=== PATIENT | female | born 1965 | race Asian ===

== ENCOUNTER 2017-07-21 11:58 | Inpatient (IN) | payer OTHER ==
[~2017-07-21] VITALS: Ht 157.5 cm; Wt 68.0 kg
[2017-07-21] VITALS (8 sets, daily range): BP systolic 105–126; BP diastolic 50–85
[2017-07-21] MEDS ORDERED: METF500T6 PO (12:55)
[2017-07-21] MEDS ORDERED: CEPH500 PO (12:55)
[2017-07-21] MEDS ORDERED: SITA100 PO (12:55)
[2017-07-21] MEDS ORDERED: VANCOMYCIN HCL 1 GM/D5% WATER 200 ML IV ONE (13:15)
[2017-07-21] MEDS ORDERED: PIPERACILLIN/TAZO 3.375 GM/D5W 50 ML IV ONE (13:15)
[2017-07-21] MEDS ORDERED: SODIUM CHLORIDE 0.9% 1,000 ML IV ONE (13:15)
[2017-07-21] MEDS ORDERED: ONDANSETRON HCL 4 MG/2 ML VIAL IVP ONE (13:15)
[2017-07-21 14:12] LABS: MEAN CORPUSCULAR HEMOGLOBIN 18.2 pg (26.0-34.0); MEAN CORPUSCULAR HGB CONC 33.2 G/dL (31.0-37.0); MEAN CORPUSCULAR VOLUME 55 fL (80-100); PLATELET COUNT (AUTO) 617 K/uL (150-450); RED BLOOD CELL COUNT(AUTO) 3.46 MIL/uL (4.00-5.20); RED CELL DISTRIBUTION WIDTH 19.3 % (11.5-14.5)
[2017-07-21] MEDS ORDERED: GADOBUTROL 1 MMOL/ML 10 ML VIAL IVP ONE (14:13)
[2017-07-21 14:20] LABS: HEMOGLOBIN 6.3 g/dL (12.0-16.0)
[2017-07-21 14:21] LABS: CALCIUM, TOTAL 8.5 mg/dL (8.8-10.5); CREATININE 0.98 mg/dL (0.60-1.30); POTASSIUM 3.3 mmol/L (3.5-5.1)
[2017-07-21 14:27] LABS: ALBUMIN 1.4 g/dL (3.4-5.0); BILIRUBIN,TOTAL 0.7 mg/dL (0.1-1.0); TOTAL PROTEIN, SERUM 7.9 g/dL (6.4-8.2)
[2017-07-21 14:30] LABS: BAND NEUTROPHILS % (MANUAL) 16 % (0-5); LYMPHOCYTES % (MANUAL) 13 % (22-44); MONOCYTES % (MANUAL) 6 % (2-9); SEGMENTED NEUTROPHILS % 65 % (40-70)
[2017-07-21] MEDS ORDERED: ASCO500 PO (14:50)
[2017-07-21] MEDS ORDERED: INSU300I SQ (14:50)
[2017-07-21] MEDS ORDERED: METO50 PO (14:50)
[2017-07-21] MEDS ORDERED: FERR-89 PO (14:50)
[2017-07-21] MEDS ORDERED: ASPI81 PO (14:50)
[2017-07-21] MEDS ORDERED: LISI-660 PO (14:50)
[2017-07-21] MEDS ORDERED: ERGO2000 PO (14:50)
[2017-07-21] MEDS ORDERED: ONDANSETRON HCL 4 MG/2 ML VIAL IVP PRN (15:30)
[2017-07-21] MEDS ORDERED: ACETAMINOPHEN 325 MG TABLET PO PRN ×2 (15:30→21:15)
[2017-07-21] MEDS ORDERED: DEXTROSE 50%-WATER 25 GM/50 ML SYRINGE IVP PRN (15:30)
[2017-07-21] MEDS ORDERED: SODIUM CL IRRIG SOLN BOTTLE 250 ML IRRIG ONE (17:07)
[2017-07-21 17:53] LABS: GLUCOMETER DEV NAME(LOC) 6N 2D; GLUCOSE,POINT OF CARE 213 MG/DL (70-110)
[2017-07-21] MEDS: INSULIN LISPRO 100 UNITS/ML SQ PRN ×2 (17:59→20:47)
[2017-07-21 20:43] LABS: GLUCOMETER DEV NAME(LOC) 6N 1E; GLUCOSE,POINT OF CARE 347 MG/DL (70-110)
[2017-07-21] MEDS ORDERED: INSULIN LISPRO 100 UNITS/ML SQ PRN (21:15)
[2017-07-21] MEDS ORDERED: 0.9% SODIUM CHLORIDE 10 ML SYRINGE IVP PRN (21:15)
[2017-07-21] MEDS ORDERED: ZOLPIDEM TARTRATE 5 MG TABLET PO PRN (21:15)
[2017-07-21] MEDS ORDERED: GLUCAGON,HUMAN RECOMBINANT 1 MG VIAL IM PRN (21:15)
[2017-07-21] MEDS ORDERED: DEXTROSE 50%-WATER 25 GM/50 ML SYG IVP PRN (21:15)
[2017-07-21 22:00] LABS: C-REACTIVE PROTEIN QUANT 17.9 mg/dL (0.00-0.30)
[2017-07-21] MEDS: PIPERACILLIN/TAZO 3.375 GM/D5W 50 ML IV SCH (22:14)
[2017-07-21] MEDS ORDERED: VANCOMYCIN HCL 500 MG in DEXTROSE 5%-WATER 100 ML IV ONE (22:30)
[2017-07-21 22:41] LABS: ERYTHROCYTE SEDIMENTATION RATE 120 MM/HR (0-20)
[2017-07-21 23:11] LABS: HEMOGLOBIN A1C 10.6 % (4.5-6.2)
[2017-07-21] MEDS: HEPARIN SODIUM,PORCINE 5,000 UNITS/ML VIAL SQ SCH (23:47)
[2017-07-22] VITALS (9 sets, daily range): BP systolic 119–142; BP diastolic 57–77
[2017-07-22] MEDS: PIPERACILLIN/TAZO 3.375 GM/D5W 50 ML IV SCH ×4 (03:23→22:53)
[2017-07-22] MEDS: INSULIN LISPRO 100 UNITS/ML SQ PRN ×2 (06:10→21:06)
[2017-07-22] MEDS ORDERED: INSULIN LISPRO 100 UNITS/ML SQ ONE (06:45)
[2017-07-22 06:55] LABS: CALCIUM, TOTAL 8.1 mg/dL (8.8-10.5); CHOL/HDL RATIO 5.1 (3.9-5.7); CREATININE 1.25 mg/dL (0.60-1.30); MAGNESIUM 1.6 mg/dL (1.80-2.40); POTASSIUM 3.8 mmol/L (3.5-5.1)
[2017-07-22 06:57] LABS: GLUCOMETER DEV NAME(LOC) 6N 2D; GLUCOSE,POINT OF CARE 421 MG/DL (70-110)
[2017-07-22 07:33] LABS: BASOPHILS % (AUTO) 0.3 % (0.0-2.0); EOSINOPHILS % (AUTO) 0.4 % (1.0-6.0); HEMATOCRIT 21.4 % (36-46); HEMOGLOBIN 7.2 g/dL (12.0-16.0); LYMPHOCYTES # (AUTO) 3.4 K/uL (1.0-4.8); LYMPHOCYTES % (AUTO) 17.3 % (22.0-44.0); MEAN CORPUSCULAR HEMOGLOBIN 20.2 pg (26.0-34.0); MEAN CORPUSCULAR HGB CONC 33.7 G/dL (31.0-37.0); MEAN CORPUSCULAR VOLUME 60 fL (80-100); MONOCYTES # (AUTO) 1.1 K/uL (0.1-1.0); MONOCYTES % (AUTO) 5.5 % (2.0-9.0); NEUTROPHILS # (AUTO) 15.1 K/uL (1.8-7.7); NEUTROPHILS % (AUTO) 76.5 % (40.0-70.0); PLATELET COUNT (AUTO) 565 K/uL (150-450); RED BLOOD CELL COUNT(AUTO) 3.57 MIL/uL (4.00-5.20); RED CELL DISTRIBUTION WIDTH 23.2 % (11.5-14.5)
[2017-07-22] MEDS: MetFORMIN HCL 500 MG TABLET PO SCH ×2 (08:07→19:52)
[2017-07-22] MEDS: METOPROLOL TARTRATE 50 MG TABLET PO SCH ×2 (08:07→20:17)
[2017-07-22] MEDS: LISINOPRIL 5 MG TABLET PO SCH (08:07)
[2017-07-22] MEDS: ASCORBIC ACID 500 MG TABLET PO SCH ×2 (08:07→20:17)
[2017-07-22] MEDS: DOCUSATE SODIUM 100 MG CAPSULE PO SCH ×2 (08:07→20:17)
[2017-07-22] MEDS: VANCOMYCIN HCL 1 GM/D5% WATER 200 ML IV SCH ×2 (08:07→20:17)
[2017-07-22] MEDS: ASPIRIN 81 MG CHEWABLE TABLET PO SCH (08:08)
[2017-07-22] MEDS: SitaGLIPtin PHOSPHATE 50 MG TABLET PO SCH (08:08)
[2017-07-22] MEDS: FERROUS SULFATE 325 MG EC TABLET PO SCH ×2 (08:08→19:52)
[2017-07-22] MEDS: HEPARIN SODIUM,PORCINE 5,000 UNITS/ML VIAL SQ SCH ×3 (08:08→23:46)
[2017-07-22] MEDS: PANTOPRAZOLE SODIUM 40 MG DR TABLET PO SCH (08:08)
[2017-07-22] MEDS: OxyCODONE HCL/ACETAMINOPHEN 5-325 MG TABLET PO PRN (08:15)
[2017-07-22] MEDS: ONDANSETRON HCL 4 MG/2 ML VIAL IVP PRN (11:00)
[2017-07-22] MEDS ORDERED: ONDANSETRON HCL 4 MG/2 ML VIAL IVP ONE (13:15)
[2017-07-22] MEDS: ACETIC ACID 0.25% 1000 ML IRRIGATION SOLUTION IRRIG SCH (13:34)
[2017-07-22 15:57] LABS: GLUCOMETER DEV NAME(LOC) 6N 2D; GLUCOSE,POINT OF CARE 322 MG/DL (70-110)
[2017-07-22 19:43] LABS: GLUCOMETER DEV NAME(LOC) 6N 2D; GLUCOSE,POINT OF CARE 366 MG/DL (70-110)
[2017-07-22 21:04] LABS: GLUCOMETER DEV NAME(LOC) 6N 1E; GLUCOSE,POINT OF CARE 306 MG/DL (70-110)
[2017-07-23] MEDS ORDERED: DEXTROSE 5%-0.45% SODIUM CHL 1,000 ML IV ONE
[2017-07-23 00:22] VITALS: BP 101/53
[2017-07-23] MEDS: PIPERACILLIN/TAZO 3.375 GM/D5W 50 ML IV SCH ×4 (03:51→23:29)
[2017-07-23 04:00] VITALS: BP 129/73
[2017-07-23] MEDS: INSULIN LISPRO 100 UNITS/ML SQ PRN ×3 (05:19→21:09)
[2017-07-23 06:08] LABS: GLUCOMETER DEV NAME(LOC) 6N 2D; GLUCOSE,POINT OF CARE 280 MG/DL (70-110)
[2017-07-23] MEDS: HEPARIN SODIUM,PORCINE 5,000 UNITS/ML VIAL SQ SCH ×3 (08:00→23:29)
[2017-07-23] MEDS: ASCORBIC ACID 500 MG TABLET PO SCH ×2 (08:06→20:56)
[2017-07-23] MEDS: LISINOPRIL 5 MG TABLET PO SCH (08:06)
[2017-07-23] MEDS: METOPROLOL TARTRATE 50 MG TABLET PO SCH ×2 (08:06→20:56)
[2017-07-23] MEDS: PANTOPRAZOLE SODIUM 40 MG DR TABLET PO SCH (08:06)
[2017-07-23] MEDS: MetFORMIN HCL 500 MG TABLET PO SCH ×2 (08:06→18:00)
[2017-07-23] MEDS: VANCOMYCIN HCL 1 GM/D5% WATER 200 ML IV SCH ×2 (08:06→20:53)
[2017-07-23] MEDS: DOCUSATE SODIUM 100 MG CAPSULE PO SCH ×2 (08:06→20:56)
[2017-07-23] MEDS: SitaGLIPtin PHOSPHATE 50 MG TABLET PO SCH (08:06)
[2017-07-23] MEDS: FERROUS SULFATE 325 MG EC TABLET PO SCH ×2 (08:06→18:00)
[2017-07-23] MEDS: ASPIRIN 81 MG CHEWABLE TABLET PO SCH (08:09)
[2017-07-23 08:18] LABS: CALCIUM, TOTAL 7.9 mg/dL (8.8-10.5); CREATININE 1.2 mg/dL (0.60-1.30); POTASSIUM 3.5 mmol/L (3.5-5.1); VANCOMYCIN,RANDOM 22.7 mcg/mL (25.0-50.0)
[2017-07-23 08:24] VITALS: BP 130/79
[2017-07-23] MEDS ORDERED: SODIUM CHLORIDE 0.9% 250 ML IV ONE (10:55)
[2017-07-23 11:53] VITALS: BP 124/70
[2017-07-23] MEDS ORDERED: LIDOCAINE HCL/PF 2% 5 ML VIAL INJ ONE (12:00)
[2017-07-23] MEDS ORDERED: METOCLOPRAMIDE HCL 5 MG/ML 2 ML VIAL IVP ONE (12:00)
[2017-07-23] MEDS ORDERED: FentaNYL CITRATE-PF 100 MCG/2 ML VIAL IVP ONE (12:00)
[2017-07-23] MEDS ORDERED: ONDANSETRON HCL 4 MG/2 ML VIAL IVP ONE (12:00)
[2017-07-23] MEDS ORDERED: DEXAMETHASONE SOD PHOS 4 MG/ML VIAL IVP ONE (12:00)
[2017-07-23] MEDS ORDERED: ROCURONIUM BROMIDE 10 MG/ML 5 ML VIAL IVP ONE (12:00)
[2017-07-23] MEDS ORDERED: NEOSTIGMINE METHYLSULFATE 1 MG/ML 10 ML VIAL IVP ONE (12:00)
[2017-07-23] MEDS ORDERED: MIDAZOLAM HCL 2 MG/2 ML VIAL IVP ONE (12:00)
[2017-07-23] MEDS ORDERED: GLYCOPYRROLATE 0.2 MG/ML VIAL IM ONE (12:00)
[2017-07-23] MEDS ORDERED: PROPOFOL 1% 20 ML VIAL IVP ONE (12:00)
[2017-07-23] MEDS: ACETIC ACID 0.25% 1000 ML IRRIGATION SOLUTION IRRIG SCH (12:28)
[2017-07-23] MEDS ORDERED: RINGERS SOLUTION,LACTATED 1,000 ML IV ONE ×2 (13:00→13:26)
[2017-07-23] MEDS ORDERED: HYDROmorphone 2 MG/ML SYRINGE IVP PRN (14:45)
[2017-07-23] MEDS ORDERED: MEPERIDINE HCL/PF 25 MG/0.5 ML AMP IVP PRN (14:45)
[2017-07-23] MEDS ORDERED: FentaNYL CITRATE-PF 100 MCG/2 ML VIAL IVP PRN (14:45)
[2017-07-23 18:53] LABS: GLUCOMETER DEV NAME(LOC) 6N 2D; GLUCOSE,POINT OF CARE 302 MG/DL (70-110)
[2017-07-23] MEDS: OXYGEN THERAPY IH SCH (20:00)
[2017-07-23 20:02] VITALS: BP 125/64
[2017-07-23 21:22] LABS: GLUCOMETER DEV NAME(LOC) 6N 2D; GLUCOSE,POINT OF CARE 226 MG/DL (70-110)
[2017-07-23] MEDS: OxyCODONE HCL/ACETAMINOPHEN 5-325 MG TABLET PO PRN (23:39)
[2017-07-23 23:40] VITALS: BP 115/61
[2017-07-24] MEDS: PIPERACILLIN/TAZO 3.375 GM/D5W 50 ML IV SCH (03:58)
[2017-07-24 04:00] VITALS: BP 111/64
[2017-07-24] MEDS: INSULIN LISPRO 100 UNITS/ML SQ PRN ×4 (06:02→21:30)
[2017-07-24 06:28] LABS: GLUCOMETER DEV NAME(LOC) 6N 2D; GLUCOSE,POINT OF CARE 245 MG/DL (70-110)
[2017-07-24 06:47] LABS: CALCIUM, TOTAL 7.9 mg/dL (8.8-10.5); CREATININE 1.63 mg/dL (0.60-1.30); POTASSIUM 3.6 mmol/L (3.5-5.1)
[2017-07-24 08:00] VITALS: BP 105/60
[2017-07-24] MEDS: OXYGEN THERAPY IH SCH ×2 (08:00→19:57)
[2017-07-24] MEDS: SitaGLIPtin PHOSPHATE 50 MG TABLET PO SCH (08:34)
[2017-07-24] MEDS: ASCORBIC ACID 500 MG TABLET PO SCH ×2 (08:35→19:56)
[2017-07-24] MEDS: ASPIRIN 81 MG CHEWABLE TABLET PO SCH (08:35)
[2017-07-24] MEDS: DOCUSATE SODIUM 100 MG CAPSULE PO SCH ×2 (08:35→19:56)
[2017-07-24] MEDS: MetFORMIN HCL 500 MG TABLET PO SCH ×2 (08:35→17:48)
[2017-07-24] MEDS: FERROUS SULFATE 325 MG EC TABLET PO SCH ×2 (08:35→17:48)
[2017-07-24] MEDS: METOPROLOL TARTRATE 50 MG TABLET PO SCH ×2 (08:35→19:57)
[2017-07-24] MEDS: HEPARIN SODIUM,PORCINE 5,000 UNITS/ML VIAL SQ SCH ×3 (08:36→23:36)
[2017-07-24] MEDS: LISINOPRIL 5 MG TABLET PO SCH (08:36)
[2017-07-24] MEDS: PANTOPRAZOLE SODIUM 40 MG DR TABLET PO SCH (08:36)
[2017-07-24] MEDS: ACETIC ACID 0.25% 1000 ML IRRIGATION SOLUTION IRRIG SCH (08:37)
[2017-07-24] MEDS: ONDANSETRON HCL 4 MG/2 ML VIAL IVP PRN (10:17)
[2017-07-24] MEDS: PIPERACILLIN SODIUM/TAZOBACTAM 2.25 GM in DEXTROSE 5%-WATER 50 ML IV SCH ×3 (10:21→22:47)
[2017-07-24 11:49] VITALS: BP 137/69
[2017-07-24 12:39] LABS: GLUCOMETER DEV NAME(LOC) 6N 1E; GLUCOSE,POINT OF CARE 241 MG/DL (70-110)
[2017-07-24] MEDS ORDERED: METOCLOPRAMIDE HCL 5 MG/ML 2 ML VIAL IVP PRN (13:00)
[2017-07-24 15:51] VITALS: BP 125/68
[2017-07-24 19:13] VITALS: BP 134/64
[2017-07-24 19:38] LABS: GLUCOMETER DEV NAME(LOC) 6N 1E; GLUCOSE,POINT OF CARE 242 MG/DL (70-110)
[2017-07-24] MEDS ORDERED: VANCOMYCIN HCL 1 GM/D5% WATER 200 ML IV SCH (20:00)
[2017-07-24 23:36] VITALS: BP 104/62
[2017-07-25 01:33] LABS: GLUCOMETER DEV NAME(LOC) 6N 1E; GLUCOSE,POINT OF CARE 205 MG/DL (70-110)
[2017-07-25] MEDS: PIPERACILLIN SODIUM/TAZOBACTAM 2.25 GM in DEXTROSE 5%-WATER 50 ML IV SCH ×3 (04:23→17:01)
[2017-07-25 04:31] VITALS: BP 124/67
[2017-07-25 05:28] LABS: GLUCOMETER DEV NAME(LOC) 6N 1E; GLUCOSE,POINT OF CARE 201 MG/DL (70-110)
[2017-07-25] MEDS: INSULIN LISPRO 100 UNITS/ML SQ PRN ×4 (06:28→20:18)
[2017-07-25 07:19] LABS: CALCIUM, TOTAL 7.6 mg/dL (8.8-10.5); CREATININE 2.95 mg/dL (0.60-1.30); POTASSIUM 3.7 mmol/L (3.5-5.1); VANCOMYCIN,RANDOM 41.7 mcg/mL (25.0-50.0)
[2017-07-25 07:58] VITALS: BP 126/63
[2017-07-25] MEDS: OXYGEN THERAPY IH SCH ×2 (08:00→20:00)
[2017-07-25] MEDS: METOPROLOL TARTRATE 50 MG TABLET PO SCH ×2 (08:47→20:11)
[2017-07-25] MEDS: FERROUS SULFATE 325 MG EC TABLET PO SCH ×2 (08:47→17:01)
[2017-07-25] MEDS: ASCORBIC ACID 500 MG TABLET PO SCH ×2 (08:47→20:11)
[2017-07-25] MEDS: MetFORMIN HCL 500 MG TABLET PO SCH (08:47)
[2017-07-25] MEDS: LISINOPRIL 5 MG TABLET PO SCH (08:47)
[2017-07-25] MEDS: SitaGLIPtin PHOSPHATE 50 MG TABLET PO SCH (08:47)
[2017-07-25] MEDS: HEPARIN SODIUM,PORCINE 5,000 UNITS/ML VIAL SQ SCH ×3 (08:47→23:46)
[2017-07-25] MEDS: PANTOPRAZOLE SODIUM 40 MG DR TABLET PO SCH (08:47)
[2017-07-25] MEDS: DOCUSATE SODIUM 100 MG CAPSULE PO SCH ×2 (08:47→20:11)
[2017-07-25] MEDS: ASPIRIN 81 MG CHEWABLE TABLET PO SCH (08:48)
[2017-07-25] MEDS: ACETIC ACID 0.25% 1000 ML IRRIGATION SOLUTION IRRIG SCH (09:00)
[2017-07-25] MEDS ORDERED: VANCOMYCIN HCL 1 GM/D5% WATER 200 ML IV PRN (09:00)
[2017-07-25 11:30] VITALS: BP 126/69
[2017-07-25] MEDS ORDERED: BISACODYL 10 MG RECTAL RECTAL SUPPOSITORY PR PRN (12:00)
[2017-07-25] MEDS ORDERED: DEXTROSE 50%-WATER 25 GM/50 ML SYRINGE IVP PRN (12:00)
[2017-07-25 15:54] VITALS: BP 114/68
[2017-07-25 16:53] LABS: GLUCOMETER DEV NAME(LOC) 6N 1E; GLUCOSE,POINT OF CARE 177 MG/DL (70-110)
[2017-07-25 17:48] LABS: GLUCOMETER DEV NAME(LOC) 6N 2D; GLUCOSE,POINT OF CARE 165 MG/DL (70-110)
[2017-07-25 20:03] VITALS: BP 111/64
[2017-07-25 22:48] LABS: GLUCOMETER DEV NAME(LOC) 6N 1E; GLUCOSE,POINT OF CARE 152 MG/DL (70-110)
[2017-07-25 23:46] VITALS: BP 106/62
[2017-07-26 04:55] VITALS: BP 115/65
[2017-07-26] MEDS: INSULIN LISPRO 100 UNITS/ML SQ PRN ×4 (05:35→20:57)
[2017-07-26 06:24] LABS: GLUCOMETER DEV NAME(LOC) 6N 1E; GLUCOSE,POINT OF CARE 168 MG/DL (70-110)
[2017-07-26 07:01] LABS: BASOPHILS % (AUTO) 0.5 % (0.0-2.0); EOSINOPHILS % (AUTO) 0.8 % (1.0-6.0); HEMATOCRIT 22.1 % (36-46); HEMOGLOBIN 7.3 g/dL (12.0-16.0); LYMPHOCYTES # (AUTO) 0.7 K/uL (1.0-4.8); LYMPHOCYTES % (AUTO) 3.9 % (22.0-44.0); MEAN CORPUSCULAR HEMOGLOBIN 19.8 pg (26.0-34.0); MEAN CORPUSCULAR HGB CONC 33.3 G/dL (31.0-37.0); MEAN CORPUSCULAR VOLUME 60 fL (80-100); MONOCYTES # (AUTO) 1.1 K/uL (0.1-1.0); MONOCYTES % (AUTO) 6.1 % (2.0-9.0); NEUTROPHILS # (AUTO) 15.7 K/uL (1.8-7.7); PLATELET COUNT (AUTO) 647 K/uL (150-450); RED CELL DISTRIBUTION WIDTH 23.4 % (11.5-14.5)
[2017-07-26 07:20] LABS: NEUTROPHILS % (AUTO) 88.7 % (40.0-70.0)
[2017-07-26 07:27] LABS: CALCIUM, TOTAL 7.8 mg/dL (8.8-10.5); CREATININE 3.61 mg/dL (0.60-1.30)
[2017-07-26] MEDS: ASPIRIN 81 MG CHEWABLE TABLET PO SCH (07:51)
[2017-07-26] MEDS: SitaGLIPtin PHOSPHATE 25 MG TABLET PO SCH (07:51)
[2017-07-26] MEDS: ACETIC ACID 0.25% 1000 ML IRRIGATION SOLUTION IRRIG SCH (07:52)
[2017-07-26] MEDS: ASCORBIC ACID 500 MG TABLET PO SCH ×2 (07:52→20:39)
[2017-07-26] MEDS: FERROUS SULFATE 325 MG EC TABLET PO SCH ×2 (07:52→17:45)
[2017-07-26] MEDS: OXYGEN THERAPY IH SCH ×2 (07:52→20:00)
[2017-07-26] MEDS: MULTIVITAMINS WITH MINERALS, THERAPEUTIC TABLET PO SCH (07:52)
[2017-07-26] MEDS: PANTOPRAZOLE SODIUM 40 MG DR TABLET PO SCH (07:52)
[2017-07-26] MEDS: LISINOPRIL 5 MG TABLET PO SCH (07:52)
[2017-07-26] MEDS: HEPARIN SODIUM,PORCINE 5,000 UNITS/ML VIAL SQ SCH ×3 (07:52→23:33)
[2017-07-26] MEDS: METOPROLOL TARTRATE 50 MG TABLET PO SCH ×2 (07:52→20:39)
[2017-07-26] MEDS: DOCUSATE SODIUM 100 MG CAPSULE PO SCH ×2 (07:53→20:38)
[2017-07-26 08:10] VITALS: BP 140/72
[2017-07-26 08:32] LABS: VANCOMYCIN,RANDOM 32.4 mcg/mL (25.0-50.0)
[2017-07-26] MEDS ORDERED: HYDROmorphone 2 MG/ML SYRINGE IVP ONE (08:45)
[2017-07-26 09:08] LABS: PLATELET MORPHOLOGY COMMENT GIANT PLTS PRESENT
[2017-07-26] MEDS: ONDANSETRON HCL 4 MG/2 ML VIAL IVP PRN (09:56)
[2017-07-26 11:44] VITALS: BP 124/63
[2017-07-26 12:37] LABS: GLUCOMETER DEV NAME(LOC) 6N 2D; GLUCOSE,POINT OF CARE 160 MG/DL (70-110)
[2017-07-26 17:26] VITALS: BP 132/71
[2017-07-26 19:23] LABS: GLUCOMETER DEV NAME(LOC) 6N 2D; GLUCOSE,POINT OF CARE 164 MG/DL (70-110)
[2017-07-26 19:30] VITALS: BP 124/74
[2017-07-26 21:17] LABS: GLUCOMETER DEV NAME(LOC) 6N 1E; GLUCOSE,POINT OF CARE 125 MG/DL (70-110)
[2017-07-26 23:00] VITALS: BP 121/63
[2017-07-27 04:45] VITALS: BP 126/74
[2017-07-27 05:43] LABS: GLUCOMETER DEV NAME(LOC) 6N 2D; GLUCOSE,POINT OF CARE 164 MG/DL (70-110)
[2017-07-27 06:50] LABS: EOSINOPHILS % (AUTO) 0.6 % (1.0-6.0); HEMATOCRIT 23.3 % (36-46); HEMOGLOBIN 7.7 g/dL (12.0-16.0); LYMPHOCYTES # (AUTO) 0.6 K/uL (1.0-4.8); LYMPHOCYTES % (AUTO) 3.5 % (22.0-44.0); MEAN CORPUSCULAR HEMOGLOBIN 19.8 pg (26.0-34.0); MEAN CORPUSCULAR HGB CONC 33.2 G/dL (31.0-37.0); MEAN CORPUSCULAR VOLUME 60 fL (80-100); MONOCYTES # (AUTO) 1.3 K/uL (0.1-1.0); NEUTROPHILS # (AUTO) 13.6 K/uL (1.8-7.7); RED CELL DISTRIBUTION WIDTH 25.1 % (11.5-14.5)
[2017-07-27 07:10] LABS: CALCIUM, TOTAL 8.1 mg/dL (8.8-10.5); CREATININE 3.78 mg/dL (0.60-1.30); MAGNESIUM 1.7 mg/dL (1.80-2.40); VANCOMYCIN,RANDOM 26.3 mcg/mL (25.0-50.0)
[2017-07-27 07:30] LABS: NEUTROPHILS % (AUTO) 86.9 % (40.0-70.0)
[2017-07-27 07:32] LABS: PLATELET COUNT (AUTO) 779 K/uL (150-450)
[2017-07-27] MEDS: OXYGEN THERAPY IH SCH (08:00)
[2017-07-27 08:06] LABS: PLATELET MORPHOLOGY COMMENT GIANT PLTS PRESENT
[2017-07-27 08:08] LABS: % IRON SATURATION 39.3 % (22-44)
[2017-07-27 08:18] VITALS: BP 124/72
[2017-07-27] MEDS ORDERED: SODIUM CL IRRIG SOLN BOTTLE 0 ML IRRIG ONE (08:27)
[2017-07-27] MEDS: ACETIC ACID 0.25% 1000 ML IRRIGATION SOLUTION IRRIG SCH (09:00)
[2017-07-27] MEDS ORDERED: SOD FERRIC GLUC COMPLX/SUCROSE 125 MG in SODIUM CHLORIDE 0.9% 100 ML IV SCH (09:45)
[2017-07-27] MEDS: SODIUM CHLORIDE 0.9% 1,000 ML IV SCH (09:59)
[2017-07-27] MEDS: HEPARIN SODIUM,PORCINE 5,000 UNITS/ML VIAL SQ SCH ×3 (09:59→23:24)
[2017-07-27] MEDS: SitaGLIPtin PHOSPHATE 25 MG TABLET PO SCH (09:59)
[2017-07-27] MEDS: MULTIVITAMINS WITH MINERALS, THERAPEUTIC TABLET PO SCH (10:00)
[2017-07-27] MEDS: PANTOPRAZOLE SODIUM 40 MG DR TABLET PO SCH (10:00)
[2017-07-27] MEDS: DOCUSATE SODIUM 100 MG CAPSULE PO SCH ×2 (10:00→19:47)
[2017-07-27] MEDS: METOPROLOL TARTRATE 50 MG TABLET PO SCH ×2 (10:00→19:47)
[2017-07-27] MEDS: ASCORBIC ACID 500 MG TABLET PO SCH ×2 (10:00→19:45)
[2017-07-27] MEDS: ASPIRIN 81 MG CHEWABLE TABLET PO SCH (11:29)
[2017-07-27] MEDS: INSULIN LISPRO 100 UNITS/ML SQ PRN ×3 (11:31→19:58)
[2017-07-27 11:46] VITALS: BP 145/79
[2017-07-27 13:48] LABS: BAND NEUTROPHILS % (MANUAL) 0 % (0-5)
[2017-07-27 13:56] LABS: HEMATOCRIT 23.3 % (36-46); HEMOGLOBIN 7.6 g/dL (12.0-16.0); MEAN CORPUSCULAR HEMOGLOBIN 19.2 pg (26.0-34.0); MEAN CORPUSCULAR HGB CONC 32.5 G/dL (31.0-37.0); MEAN CORPUSCULAR VOLUME 59 fL (80-100); RED BLOOD CELL COUNT(AUTO) 3.93 MIL/uL (4.00-5.20)
[2017-07-27 14:21] LABS: PLATELET COUNT (AUTO) 770 K/uL (150-450)
[2017-07-27 14:52] LABS: LYMPHOCYTES % (MANUAL) 6 % (22-44); MONOCYTES % (MANUAL) 3 % (2-9); PLATELET MORPHOLOGY COMMENT GIANT PLTS PRESENT; SEGMENTED NEUTROPHILS % 91 % (40-70)
[2017-07-27 15:34] VITALS: BP 95/56
[2017-07-27 17:11] LABS: CALCIUM, TOTAL 8.3 mg/dL (8.8-10.5); CREATININE 3.76 mg/dL (0.60-1.30); POTASSIUM 3.9 mmol/L (3.5-5.1)
[2017-07-27 18:01] LABS: SODIUM,URINE RANDOM 23 mmol/l (20-110)
[2017-07-27 18:12] LABS: CREATININE,URINE RANDOM 31.3 mg/dL (30.0-125.0); UREA NITROGEN,URINE RANDOM 119 mg/dL (350-1000)
[2017-07-27 18:13] LABS: APPEARANCE,URINE CLEAR (CLEAR); BILIRUBIN,URINE NEGATIVE (NEGATIVE); GLUCOSE, URINE (UA) NEGATIVE (NEGATIVE); KETONES,URINE NEGATIVE (NEGATIVE); LEUKOCYTE ESTERASE ,URINE NEGATIVE (NEGATIVE); NITRATE,URINE NEGATIVE (NEGATIVE); OCCULT BLOOD,URINE TRACE (NEGATIVE); PH,URINE 5.5 (5.0-8.0); PROTEIN,URINE NEGATIVE (NEGATIVE); UROBILINOGEN,URINE 0.2 mg/dL (<=1.0)
[2017-07-27 18:19] LABS: OSMOLALITY,URINE 112 mOS/kg (50-1200)
[2017-07-27 18:32] LABS: YEAST,URINE Rare /HPF (None Seen)
[2017-07-27 18:33] LABS: BACTERIA,URINE Rare /HPF (None Seen); RBC,URINE 0-2 /HPF (0-2); WBC,URINE 0-2 /HPF (0-5)
[2017-07-27 18:34] LABS: SQUAMOUS EPITHELIAL CELL,UR Rare /LPF (None Seen)
[2017-07-27 19:53] VITALS: BP 133/72
[2017-07-27 20:01] LABS: GLUCOMETER DEV NAME(LOC) 6N 2D; GLUCOSE,POINT OF CARE 233 MG/DL (70-110)
[2017-07-27 20:31] LABS: GLUCOMETER DEV NAME(LOC) 6N 1E; GLUCOSE,POINT OF CARE 229 MG/DL (70-110)
[2017-07-27 20:31] LABS: GLUCOMETER DEV NAME(LOC) 6N 1E; GLUCOSE,POINT OF CARE 213 MG/DL (70-110)
[2017-07-27 23:10] VITALS: BP 114/59
[2017-07-28] VITALS (15 sets, daily range): BP systolic 100–147; BP diastolic 58–85
[2017-07-28] MEDS: INSULIN LISPRO 100 UNITS/ML SQ PRN ×3 (06:32→18:03)
[2017-07-28 06:48] LABS: GLUCOMETER DEV NAME(LOC) 6N 1E; GLUCOSE,POINT OF CARE 236 MG/DL (70-110)
[2017-07-28 06:57] LABS: ANION GAP 8 mmol/L (8-16); CALCIUM, TOTAL 8.1 mg/dL (8.8-10.5); CARBON DIOXIDE 24 mmol/L (22-29); CHLORIDE 97 mmol/L (98-107); CREATINE KINASE, TOTAL 43 U/L (26-192); CREATININE 3.67 mg/dL (0.60-1.30); GLOMERULAR FILTR. RATE CALC 13 mL/min (>60); GLUCOSE,RANDOM 230 mg/dL (70-110); POTASSIUM 3.9 mmol/L (3.5-5.1); SODIUM SERUM 129 mmol/L (136-145); THYROID STIMULATING HORMONE 1.99 uIU/mL (0.36-3.74); UREA NITROGEN, BLOOD 23 mg/dL (7-18); VANCOMYCIN,RANDOM 22.4 mcg/mL (25.0-50.0)
[2017-07-28 07:48] LABS: BASOPHILS % (AUTO) 0.2 % (0.0-2.0); EOSINOPHILS % (AUTO) 0.5 % (1.0-6.0); LYMPHOCYTES # (AUTO) 0.9 K/uL (1.0-4.8); LYMPHOCYTES % (AUTO) 7.7 % (22.0-44.0); MEAN CORPUSCULAR HGB CONC 33.6 G/dL (31.0-37.0); MEAN CORPUSCULAR VOLUME 60 fL (80-100); MONOCYTES # (AUTO) 1.8 K/uL (0.1-1.0); MONOCYTES % (AUTO) 16.1 % (2.0-9.0); NEUTROPHILS # (AUTO) 8.6 K/uL (1.8-7.7); NEUTROPHILS % (AUTO) 75.5 % (40.0-70.0); PLATELET COUNT (AUTO) 651 K/uL (150-450); RED BLOOD CELL COUNT(AUTO) 3.23 MIL/uL (4.00-5.20); RED CELL DISTRIBUTION WIDTH 26.1 % (11.5-14.5)
[2017-07-28 07:55] LABS: OSMOLALITY 291 mOS/kg (270-310)
[2017-07-28 07:58] LABS: HEMOGLOBIN 6.5 g/dL (12.0-16.0)
[2017-07-28 07:59] LABS: HEMATOCRIT 19.2 % (36-46)
[2017-07-28] MEDS: OXYGEN THERAPY IH SCH (08:00)
[2017-07-28 08:47] LABS: PLATELET MORPHOLOGY COMMENT GIANT PLTS PRESENT
[2017-07-28] MEDS: ACETIC ACID 0.25% 1000 ML IRRIGATION SOLUTION IRRIG SCH (09:00)
[2017-07-28] MEDS ORDERED: MAGNESIUM SULFATE 4 GM/WATER 100 ML IV ONE (09:30)
[2017-07-28] MEDS: DOCUSATE SODIUM 100 MG CAPSULE PO SCH ×2 (10:27→20:41)
[2017-07-28] MEDS: ASCORBIC ACID 500 MG TABLET PO SCH ×2 (10:27→20:40)
[2017-07-28] MEDS: PANTOPRAZOLE SODIUM 40 MG DR TABLET PO SCH ×2 (10:27→20:40)
[2017-07-28] MEDS: SitaGLIPtin PHOSPHATE 25 MG TABLET PO SCH (10:27)
[2017-07-28] MEDS: MULTIVITAMINS WITH MINERALS, THERAPEUTIC TABLET PO SCH (10:38)
[2017-07-28] MEDS: HEPARIN SODIUM,PORCINE 5,000 UNITS/ML VIAL SQ SCH ×3 (10:38→19:46)
[2017-07-28] MEDS: ASPIRIN 81 MG CHEWABLE TABLET PO SCH (10:38)
[2017-07-28] MEDS: METOPROLOL TARTRATE 50 MG TABLET PO SCH ×2 (10:39→21:00)
[2017-07-28 11:12] LABS: PATHOLOGY REVIEW, DIFF SEE NOTE.
[2017-07-28 15:08] LABS: GLUCOMETER DEV NAME(LOC) 6N 1E; GLUCOSE,POINT OF CARE 216 MG/DL (70-110)
[2017-07-28] MEDS ORDERED: SODIUM CHLORIDE 0.9% 500 ML IV ONE (15:39)
[2017-07-28] MEDS: SODIUM CHLORIDE 0.9% 1,000 ML IV SCH (20:41)
[2017-07-28 21:23] LABS: GLUCOMETER DEV NAME(LOC) 6N 1E; GLUCOSE,POINT OF CARE 233 MG/DL (70-110)
[2017-07-28 21:23] LABS: GLUCOMETER DEV NAME(LOC) 6N 1E; GLUCOSE,POINT OF CARE 248 MG/DL (70-110)
[2017-07-29 04:25] VITALS: BP 145/77
[2017-07-29 05:43] LABS: GLUCOMETER DEV NAME(LOC) 6N 1E; GLUCOSE,POINT OF CARE 261 MG/DL (70-110)
[2017-07-29] MEDS ORDERED: VANCOMYCIN HCL 1 GM/D5% WATER 200 ML IV ONE (06:00)
[2017-07-29] MEDS ORDERED: SODIUM CHLORIDE 0.9% 1,000 ML IV ONE ×2 (07:00→08:29)
[2017-07-29 07:46] VITALS: BP 155/84
[2017-07-29 08:39] LABS: FOLATE SERUM 8.6 ng/mL (5.4-)
[2017-07-29 08:45] LABS: VITAMIN B12 LEVEL > 2000 pg/mL (211-911)
[2017-07-29] MEDS: ACETIC ACID 0.25% 1000 ML IRRIGATION SOLUTION IRRIG SCH (09:00)
[2017-07-29] MEDS: DOCUSATE SODIUM 100 MG CAPSULE PO SCH (10:44)
[2017-07-29] MEDS: MULTIVITAMINS WITH MINERALS, THERAPEUTIC TABLET PO SCH (10:44)
[2017-07-29] MEDS: SitaGLIPtin PHOSPHATE 25 MG TABLET PO SCH (10:44)
[2017-07-29] MEDS: PANTOPRAZOLE SODIUM 40 MG DR TABLET PO SCH (10:44)
[2017-07-29] MEDS: ASCORBIC ACID 500 MG TABLET PO SCH (10:44)
[2017-07-29] MEDS: METOPROLOL TARTRATE 50 MG TABLET PO SCH (10:44)
[2017-07-29 10:48] LABS: CALCIUM, TOTAL 8.2 mg/dL (8.8-10.5); CREATININE 3.55 mg/dL (0.60-1.30); POTASSIUM 4.1 mmol/L (3.5-5.1)
[2017-07-29 10:49] LABS: BASOPHILS % (AUTO) 0.6 % (0.0-2.0); EOSINOPHILS % (AUTO) 0.8 % (1.0-6.0); HEMATOCRIT 23.3 % (36-46); HEMOGLOBIN 7.9 g/dL (12.0-16.0); LYMPHOCYTES # (AUTO) 0.7 K/uL (1.0-4.8); LYMPHOCYTES % (AUTO) 6.9 % (22.0-44.0); MEAN CORPUSCULAR HEMOGLOBIN 21.5 pg (26.0-34.0); MEAN CORPUSCULAR HGB CONC 33.8 G/dL (31.0-37.0); MEAN CORPUSCULAR VOLUME 64 fL (80-100); MONOCYTES # (AUTO) 0.9 K/uL (0.1-1.0); MONOCYTES % (AUTO) 9.6 % (2.0-9.0); NEUTROPHILS % (AUTO) 82.1 % (40.0-70.0); PLATELET COUNT (AUTO) 628 K/uL (150-450); RED BLOOD CELL COUNT(AUTO) 3.67 MIL/uL (4.00-5.20); RED CELL DISTRIBUTION WIDTH 29.7 % (11.5-14.5)
[2017-07-29 10:55] LABS: ALBUMIN 1.4 g/dL (3.4-5.0); BILIRUBIN,TOTAL 0.6 mg/dL (0.1-1.0); TOTAL PROTEIN, SERUM 7.4 g/dL (6.4-8.2)
[2017-07-29 12:00] VITALS: BP 153/86
[2017-07-29] MEDS: INSULIN LISPRO 100 UNITS/ML SQ PRN ×2 (12:06→17:35)
[2017-07-29 12:10] LABS: PLATELET MORPHOLOGY COMMENT GIANT PLTS PRESENT
[2017-07-29 13:18] LABS: GLUCOMETER DEV NAME(LOC) 6N 1E; GLUCOSE,POINT OF CARE 300 MG/DL (70-110)
[2017-07-29] MEDS ORDERED: SODIUM CL IRRIG SOLN BOTTLE 250 ML IRRIG ONE (15:41)
[2017-07-29 16:03] VITALS: BP 145/77
[2017-07-29] MEDS ORDERED: LIDOCAINE HCL/PF 2% 5 ML VIAL IM ONE (18:39)
[2017-07-29] MEDS ORDERED: PROPOFOL 1% 20 ML VIAL IVP ONE (18:39)
[2017-07-29 20:07] LABS: GLUCOMETER DEV NAME(LOC) 6N 1E; GLUCOSE,POINT OF CARE 175 MG/DL (70-110)
== END 2017-07-29 18:40 | DRG 853 ==
LOC: EMS 12:00 → 6N 15:26
PROVIDERS: ADMIT Hospitalist; ATTEND Hospitalist
PROC: 30233N1 Transfusion of Nonautologous Red Blood Cells into Peripheral Vein, Percutaneous Approach (ICD-10-PCS; 2017-07-21)
PROC: 0LBP0ZZ Excision of Left Lower Leg Tendon, Open Approach (ICD-10-PCS; 2017-07-23)
PROC: 0J9P0ZZ Drainage of Left Lower Leg Subcutaneous Tissue and Fascia, Open Approach (ICD-10-PCS; principal; 2017-07-23 15:30)
DX: A41.9 Sepsis, unspecified organism (principal); N17.0 Acute kidney failure with tubular necrosis; L03.116 Cellulitis of left lower limb; M86.9 Osteomyelitis, unspecified; E87.1 Hypo-osmolality and hyponatremia; L97.329 Non-pressure chronic ulcer of left ankle with unspecified severity; M60.9 Myositis, unspecified; E11.51 Type 2 diabetes mellitus with diabetic peripheral angiopathy without gangrene; E11.319 Type 2 diabetes mellitus with unspecified diabetic retinopathy without macular edema; E78.5 Hyperlipidemia, unspecified; D50.9 Iron deficiency anemia, unspecified; E83.42 Hypomagnesemia; E11.65 Type 2 diabetes mellitus with hyperglycemia; E11.40 Type 2 diabetes mellitus with diabetic neuropathy, unspecified; E11.69 Type 2 diabetes mellitus with other specified complication; I12.9 Hypertensive chronic kidney disease with stage 1 through stage 4 chronic kidney disease, or unspecified chronic kidney disease; E11.22 Type 2 diabetes mellitus with diabetic chronic kidney disease; N18.9 Chronic kidney disease, unspecified; K59.00 Constipation, unspecified; B95.62 Methicillin resistant Staphylococcus aureus infection as the cause of diseases classified elsewhere; Z79.84 Long term (current) use of oral hypoglycemic drugs; Z83.3 Family history of diabetes mellitus
CPT/HCPCS: 73720; 76770; 82271; 82533; 82570; 82607; 82746; 83036; 83540; 83550; 83655; 83735; 83930; 83935; 84300; 84443; 84540; 85007; 85651; 86140; 86850; 86900; 86901; 86920; 87040; 87070; 87147; 87205; 88304; 89050; 93005; 93926; 93971; 96365; 96367; 96375; 99285; A9585; J0690; J1100; J1170; J1644; J1815; J2250; J2405; J2543; J2704; J2765; J2916; J3010; J3370; J3475; J3490; J7030; J7040; J7050; J7060; J7120; P9016

== ENCOUNTER → 2017-07-21 | Outpatient (CLI) | payer OTHER ==
[~2017-07-21] VITALS: Ht 157.5 cm; Wt 60.9 kg
[~2017-07-21] MED LIST: ASCO500 PO; ASPI81 PO; CEPH500 PO; ERGO2000 PO; FERR-89 PO; INSU300I SQ; LISI-660 PO; METF500T6 PO; METO50 PO; SITA100 PO
[2017-07-21 11:06] VITALS: BP 126/58
== END | disposition home or self-care (01) ==
LOC: HBOWC 09:52
PROVIDERS: ATTEND Internal Medicine
DX: S91.002D Unspecified open wound, left ankle, subsequent encounter (principal); S80.822D Blister (nonthermal), left lower leg, subsequent encounter; E11.69 Type 2 diabetes mellitus with other specified complication; M86.9 Osteomyelitis, unspecified; X58.XXXD Exposure to other specified factors, subsequent encounter